=== PATIENT | male | born 1995 | race Caucasian/White ===

== ENCOUNTER → 2017-11-15 | Outpatient (CLI) | payer OTHER | LOC: M WUC 11:48 | DX: M79.672 Pain in left foot (principal) | CPT/HCPCS: 73630 ==

== ENCOUNTER 2018-02-13 17:51 | Emergency (ER) | payer OTHER ==
[2018-02-13] MEDS: ALBUTEROL SULFATE 2.5 MG/0.5 ML INH NEB SOLN NEB (18:23)
== END 2018-02-13 19:04 | disposition home or self-care (01) ==
LOC: M ED 17:51
DX: J45.901 Unspecified asthma with (acute) exacerbation (principal)
CPT/HCPCS: 99283

== ENCOUNTER 2018-03-17 20:23 | Emergency (ER) | payer OTHER ==
[2018-03-17] MEDS: AUGMENTIN 875 MG TAB PO (20:47)
[2018-03-17] MEDS: NORCO, ANEXSIA 5/325MG TABLET (HYDROcodone/ACETAMINOPHEN) PO (20:48)
== END 2018-03-17 21:00 | disposition home or self-care (01) ==
LOC: M ED 20:23
DX: H66.41 Suppurative otitis media, unspecified, right ear (principal); J45.909 Unspecified asthma, uncomplicated
CPT/HCPCS: 99282

== ENCOUNTER 2018-04-11 04:14 | Emergency (ER) | payer OTHER ==
[2018-04-11] MEDS: dexameTHASONE 20 MG/5 ML VIAL (J1100) IV (06:35)
[2018-04-11] MEDS: NS 1,000 ML IV (06:35)
[2018-04-11 06:54] LABS: BASO # 0.1 10^3/uL (0.0-0.2); BASO % 0.4 % (0.0-1.0); EOS # 0.5 10^3/uL (0.0-0.50); EOS % 4.5 % (0.0-3.0); HEMATOCRIT 47.6 % (42.0-52.0); HEMOGLOBIN 16.2 g/dl (13.5-17.5); IMMATURE GRANULOCYTE % 0.4 % (0-3.0); LYMPH # 0.9 10^3/uL (1.5-6.5); LYMPH % 7.4 % (24.0-44.0); MEAN CORPUSCULAR HEMOGLOBIN 29.6 pg (27.0-33.0); MEAN CORPUSCULAR VOLUME 86.9 fl (80.0-96.0); MONO # 0.9 10^3/uL (0.0-0.8); MONO % 7.2 % (0.0-5.0); NEUTROPHILS # 9.5 10^3/uL (1.8-7.7); NEUTROPHILS % 80.1 % (36.0-66.0); PLATELET COUNT, AUTOMATED 216 10^3/uL (150-450); RED BLOOD COUNT 5.48 10^6/uL (4.30-6.10); RED CELL DISTRIBUTION WIDTH 12.5 % (11.5-14.5); WHITE BLOOD COUNT 11.9 10^3/uL (4.0-10.0)
[2018-04-11] MEDS: KETOROLAC 30 MG/ML VIAL (J1885) IV (07:21)
[2018-04-11] MEDS ORDERED: ISOVUE-370 76% 100ML VIAL (Q9967) As Ordered (07:27)
[2018-04-11 07:56] LABS: ANION GAP 6 MEQ/L (8-16); BLOOD UREA NITROGEN 13 MG/DL (7-18); C REACTIVE PROTEIN QUANTITATIV 1.95 MG/DL (0.00-0.30); CALCIUM LEVEL 8.2 MG/DL (8.5-10.1); CARBON DIOXIDE LEVEL 23 MEQ/L (21-32); CHLORIDE LEVEL 109 MEQ/L (98-107); CREATININE FOR GFR 0.84 MG/DL (0.70-1.30); GLOMERULAR FILTRATION RATE > 60.0 (>60); GLUCOSE, FASTING 91 MG/DL (70-100); POTASSIUM SERUM 4.3 MEQ/L (3.5-5.1); SODIUM LEVEL 138 MEQ/L (136-145)
[2018-04-11] MEDS: AMPICILLIN SOD/SULBACTAM SOD 3 GM in D5W MINI-BAG PLUS 100 ML IV (09:51)
[2018-04-11] MEDS: HYDROcodone/APAP LIQUID 7.5-325MG 15ML UDC (LORTAB ELIXIR) PO (10:05)
== END 2018-04-11 10:46 | disposition home or self-care (01) ==
LOC: M ED 04:14
DX: K12.2 Cellulitis and abscess of mouth (principal); J02.9 Acute pharyngitis, unspecified; J45.909 Unspecified asthma, uncomplicated; J30.2 Other seasonal allergic rhinitis; Z79.899 Other long term (current) drug therapy
CPT/HCPCS: J1100

== ENCOUNTER 2018-04-23 03:27 | Emergency (ER) | payer SELFPAY, OTHER | END 2018-04-23 04:35 | disposition home or self-care (01) | LOC: M ED 03:27 | DX: H61.22 Impacted cerumen, left ear (principal); Z79.899 Other long term (current) drug therapy | CPT/HCPCS: 99282 ==

== ENCOUNTER 2018-05-10 18:16 | Emergency (ER) | payer SELFPAY ==
[2018-05-10] MEDS: CIPROFLOXACIN HC OTIC SUSPENSION AD (21:09)
[2018-05-10] MEDS: AMOXICILLIN 500 MG CAP PO (21:09)
== END 2018-05-10 21:15 | disposition home or self-care (01) ==
LOC: M ED 18:16
DX: H66.91 Otitis media, unspecified, right ear (principal); H60.91 Unspecified otitis externa, right ear; J45.909 Unspecified asthma, uncomplicated
CPT/HCPCS: 99283

== ENCOUNTER 2018-06-28 07:25 | Emergency (ER) | payer OTHER, SELFPAY ==
[~2018-06-28] VITALS: Ht 185.4 cm; Wt 140.9 kg
[~2018-06-28 07:25] MED LIST: ALLE24TA8 PO; AMOX875T PO; AUGM500T34 PO; AUGM875T28 PO; CELE1CAP4 PO; CIPR0.3S AD; COLA100C5 PO; HYDR-3715 PO; IBUP-1022 PO; IBUP200C25 PO; NEUR600T PO; OFLOSO AD; OXYC-517 PO; PROAAER10 INH; SUDA30TA8 PO
[2018-06-28 09:25] LABS: BASO % 0.6 % (0.0-1.0); EOS # 0.3 10^3/uL (0.0-0.50); EOS % 4.7 % (0.0-3.0); HEMATOCRIT 43.7 % (42.0-52.0); HEMOGLOBIN 15.1 g/dl (13.5-17.5); LYMPH % 43.5 % (24.0-44.0); MEAN CORPUSCULAR HEMOGLOBIN 29.4 pg (27.0-33.0); MEAN CORPUSCULAR HGB CONC 34.6 g/dl (32.0-36.5); MONO # 0.5 10^3/uL (0.0-0.8); MONO % 7.9 % (0.0-5.0); NEUTROPHILS # 2.9 10^3/uL (1.8-7.7); NEUTROPHILS % 42.6 % (36.0-66.0); PLATELET COUNT, AUTOMATED 202 10^3/uL (150-450); RED BLOOD COUNT 5.14 10^6/uL (4.30-6.10); WHITE BLOOD COUNT 6.9 10^3/uL (4.0-10.0)
[2018-06-28 09:47] LABS: APPEARANCE, URINE CLEAR (CLEAR); BACTERIA, URINE AUTO NEGATIVE (NEGATIVE); BILIRUBIN, URINE AUTO NEGATIVE (NEGATIVE); BLOOD, URINE BLOOD NEGATIVE (NEGATIVE); COLOR, URINE YELLOW (YELLOW); GLUCOSE, URINE (UA) AUTO NEGATIVE (NEGATIVE); KETONE, URINE AUTO NEGATIVE (NEGATIVE); LEUKOCYTE ESTERASE, URINE AUTO NEGATIVE (NEGATIVE); MUCUS, URINE SMALL (NEGATIVE); NITRITE, URINE AUTO NEGATIVE (NEGATIVE); PROTEIN, URINE AUTO NEGATIVE (NEGATIVE); RBC, URINE AUTO 4 /HPF (0-3); SPECIFIC GRAVITY URINE AUTO 1.021 (1.002-1.035); SQUAMOUS EPITHELIAL CELL UR AU 0 /HPF (0-6); UROBILINOGEN, URINE AUTO 0.2 mg/dL (0.0-2.0); WBC, URINE AUTO 0 /HPF (0-3)
[2018-06-28 09:59] LABS: BLOOD UREA NITROGEN 13 MG/DL (7-18); CALCIUM LEVEL 9.4 MG/DL (8.5-10.1); CARBON DIOXIDE LEVEL 29 MEQ/L (21-32); CHLORIDE LEVEL 104 MEQ/L (98-107); CREATININE FOR GFR 0.97 MG/DL (0.70-1.30); GLOMERULAR FILTRATION RATE > 60.0 (>60); GLUCOSE, FASTING 93 MG/DL (70-100); POTASSIUM SERUM 4.4 MEQ/L (3.5-5.1); SODIUM LEVEL 137 MEQ/L (136-145)
[2018-06-28] MEDS ORDERED: CEFD1CAP8 PO (10:28)
[2018-06-28] MEDS ORDERED: CHLO25TA PO (10:28)
[2018-06-28] MEDS ORDERED: FLON1SPR NARES (10:28)
[2018-06-28 10:35] VITALS: BP 170/101
== END 2018-06-28 10:46 | disposition home or self-care (01) ==
LOC: M ED 07:25
DX: H66.001 Acute suppurative otitis media without spontaneous rupture of ear drum, right ear (principal); I10 Essential (primary) hypertension; J30.2 Other seasonal allergic rhinitis; Z79.899 Other long term (current) drug therapy; J30.81 Allergic rhinitis due to animal (cat) (dog) hair and dander

== ENCOUNTER → 2018-07-05 | Outpatient (REF) | payer OTHER ==
[~2018-07-05] MED LIST changes: +ARNU1INH; +CEFD1CAP8 PO; +CHLO25TA PO; +CLEO300C2 PO; +FLON1SPR NARES; -HYDR-3715 PO; +MAGICMW SSP; +NORCOTAB PO; +OMEP-218; +PROAAER10; +SUDATAB15 PO
[2018-07-05 16:54] LABS: BLOOD UREA NITROGEN 20 MG/DL (7-18); CALCIUM LEVEL 9.4 MG/DL (8.5-10.1); CARBON DIOXIDE LEVEL 29 MEQ/L (21-32); CHLORIDE LEVEL 101 MEQ/L (98-107); CREATININE FOR GFR 1.07 MG/DL (0.70-1.30); GLOMERULAR FILTRATION RATE > 60.0 (>60); GLUCOSE, FASTING 96 MG/DL (70-100); POTASSIUM SERUM 3.4 MEQ/L (3.5-5.1); SODIUM LEVEL 138 MEQ/L (136-145)
== END ==
LOC: M SFHCCLAY 09:15
PROVIDERS: ATTEND Family Medicine
DX: I10 Essential (primary) hypertension (principal); Z09 Encounter for follow-up examination after completed treatment for conditions other than malignant neoplasm

== ENCOUNTER 2018-07-06 00:32 | Emergency (ER) | payer OTHER ==
[~2018-07-06] VITALS: Ht 185.4 cm; Wt 136.4 kg
[~2018-07-06 00:32] MED LIST changes: -ARNU1INH; -CLEO300C2 PO; -MAGICMW SSP; -OMEP-218; -PROAAER10; -SUDATAB15 PO
[2018-07-06] MEDS ORDERED: SUDATAB15 PO (01:44)
[2018-07-06] MEDS ORDERED: MAGICMW SSP (01:44)
[2018-07-06] MEDS ORDERED: PSEUDOEPHEDRINE 30 MG TAB PO ONE (01:45)
[2018-07-06] MEDS ORDERED: MAGIC MOUTHWASH SUSPENSION BTL SS ONE (01:45)
[2018-07-06 02:09] VITALS: BP 148/101
== END 2018-07-06 02:09 | disposition home or self-care (01) ==
LOC: M ED 00:32
DX: J02.9 Acute pharyngitis, unspecified (principal); H66.93 Otitis media, unspecified, bilateral

== ENCOUNTER 2018-07-09 01:20 | Emergency (ER) | payer OTHER ==
[~2018-07-09] VITALS: Ht 185.4 cm; Wt 136.4 kg
[2018-07-09 01:20] VITALS: BP 140/89
[~2018-07-09 01:20] MED LIST changes: +MAGICMW SSP; +SUDATAB15 PO
[2018-07-09] MEDS ORDERED: PROAAER10 (01:29)
[2018-07-09] MEDS ORDERED: ARNU1INH (01:29)
[2018-07-09] MEDS ORDERED: OMEP-218 (01:29)
[2018-07-09] MEDS ORDERED: CLEO300C2 PO (02:55)
[2018-07-09] MEDS ORDERED: KETOROLAC 30 MG/ML VIAL (J1885) As Ordered ONE (02:57)
[2018-07-09] MEDS ORDERED: CLINDAMYCIN 150 MG CAP PO ONE (03:00)
[2018-07-09] MEDS ORDERED: KETOROLAC 60 MG/2 ML VIAL (J1885) IM ONE (03:00)
== END 2018-07-09 03:05 | disposition home or self-care (01) ==
LOC: M ED 01:20
DX: K04.7 Periapical abscess without sinus (principal); R68.84 Jaw pain; K02.9 Dental caries, unspecified; H92.01 Otalgia, right ear; J30.81 Allergic rhinitis due to animal (cat) (dog) hair and dander; Z79.899 Other long term (current) drug therapy; Z79.2 Long term (current) use of antibiotics; Z79.51 Long term (current) use of inhaled steroids
CPT/HCPCS: 96372; 99283; J1885

== ENCOUNTER 2018-10-20 09:24 | Emergency (ER) | payer OTHER ==
[~2018-10-20] VITALS: Ht 185.4 cm; Wt 163.1 kg
[2018-10-20 09:24] VITALS: BP 152/85
[~2018-10-20 09:24] MED LIST changes: +ALLE24TA7 PO; -ALLE24TA8 PO; +ARNU1INH; +CLEO300C2 PO; +HYDR-3715 PO; -NORCOTAB PO; +OMEP-218; +PROAAER10
[2018-10-20] MEDS ORDERED: AUGM875T28 PO (10:10)
[2018-10-20] MEDS ORDERED: PRED20TA PO (10:10)
[2018-10-20] MEDS ORDERED: AUGMENTIN 875 MG TAB PO ONE (10:15)
== END 2018-10-20 10:17 | disposition home or self-care (01) ==
LOC: M ED 09:24
DX: K12.2 Cellulitis and abscess of mouth (principal); J01.90 Acute sinusitis, unspecified; Z86.69 Personal history of other diseases of the nervous system and sense organs; J45.909 Unspecified asthma, uncomplicated; K21.9 Gastro-esophageal reflux disease without esophagitis; Z79.899 Other long term (current) drug therapy

== ENCOUNTER → 2019-05-16 | Outpatient (REF) | payer OTHER ==
[~2019-05-16] MED LIST changes: +PRED20TA PO
== END ==
LOC: M SFHCCLAY 11:07
PROVIDERS: ATTEND Family Medicine
DX: K21.9 Gastro-esophageal reflux disease without esophagitis (principal)

== ENCOUNTER 2019-05-26 08:11 | Emergency (ER) | payer OTHER ==
[~2019-05-26] VITALS: Ht 185.4 cm; Wt 146.4 kg
[2019-05-26 09:03] LABS: BASO # 0.1 10^3/uL (0.0-0.2); BASO % 0.5 % (0.0-1.0); EOS # 0.3 10^3/uL (0.0-0.5); EOS % 2.8 % (0.0-3.0); HEMATOCRIT 49.2 % (42.0-52.0); HEMOGLOBIN 16.9 g/dl (13.5-17.5); LYMPH % 20.3 % (24.0-44.0); MEAN CORPUSCULAR HEMOGLOBIN 28.6 pg (27.0-33.0); MEAN CORPUSCULAR HGB CONC 34.3 g/dl (32.0-36.5); MEAN CORPUSCULAR VOLUME 83.2 fl (80.0-96.0); MONO # 0.7 10^3/uL (0.0-0.8); MONO % 6.7 % (0.0-5.0); NEUTROPHILS # 6.7 10^3/uL (1.5-8.5); NEUTROPHILS % 69.3 % (36.0-66.0); PLATELET COUNT, AUTOMATED 245 10^3/uL (150-450); RED BLOOD COUNT 5.91 10^6/uL (4.30-6.10); WHITE BLOOD COUNT 9.7 10^3/uL (4.0-10.0)
[2019-05-26] MEDS ORDERED: CHLO125TA PO (09:21)
[2019-05-26] MEDS ORDERED: PANT40TA3 PO (09:21)
[2019-05-26 09:27] LABS: ALBUMIN 4.2 GM/DL (3.2-5.2); ALT/SGPT 74 U/L (12-78); BILIRUBIN,DIRECT 0.3 MG/DL (0.0-0.2); BILIRUBIN,TOTAL 1.4 MG/DL (0.2-1.0); BLOOD UREA NITROGEN 14 MG/DL (7-18); CALCIUM LEVEL 9.5 MG/DL (8.5-10.1); CARBON DIOXIDE LEVEL 27 MEQ/L (21-32); CHLORIDE LEVEL 103 MEQ/L (98-107); CREATININE FOR GFR 1.04 MG/DL (0.70-1.30); GLOMERULAR FILTRATION RATE > 60.0 (>60); GLUCOSE, FASTING 102 MG/DL (70-100); LIPASE 82 U/L (73-393); POTASSIUM SERUM 3.3 MEQ/L (3.5-5.1); SODIUM LEVEL 139 MEQ/L (136-145); TOTAL PROTEIN 7.7 GM/DL (6.4-8.2)
--- NOTE | 2019-05-26 11:48 | REP ---
RIGHT UPPER QUADRANT SONOGRAPHY: HISTORY: Elevated liver enzymes. Comparison CT study May 18, 2015. SONOGRAPHIC FINDINGS: Scanning through the right upper quadrant of the abdomen demonstrates normal sized thin-walled gallbladder without evidence of stone or polyp. Common bile duct is normal measuring 0.6 cm in greatest diameter. Limited penetration of the liver and increased echogenicity suggest fatty infiltration of the liver. The liver is felt to be mildly prominent in size with a midclavicular line craniocaudal dimension of 19.4 cm. There are areas of fat sparing in the liver parenchyma adjacent to the gallbladder. Pancreatic visualization is limited by bowel gas. No pancreatic abnormality is seen. No free fluid is noted. No right renal abnormality is observed. The right kidney measures 11.9 x 6.5 x 5.4 cm. IMPRESSION: Fatty infiltration of the liver. Mildly enlarged liver. Otherwise negative. Electronically Signed by Alvarez Gibbons MD 05/26/2019 12:17 P
[2019-05-26] MEDS ORDERED: ZOFR8TAB24 PO (11:49)
[2019-05-26 11:51] VITALS: BP 144/84
== END 2019-05-26 11:58 | disposition home or self-care (01) ==
LOC: M ED 08:11
DX: R11.2 Nausea with vomiting, unspecified (principal); R10.9 Unspecified abdominal pain

== ENCOUNTER → 2019-06-05 | Outpatient (REF) | payer OTHER ==
[~2019-06-05] MED LIST changes: +CHLO125TA PO; +PANT40TA3 PO; +ZOFR8TAB24 PO
[2019-06-05 17:08] LABS: BLOOD UREA NITROGEN 15 MG/DL (7-18); CALCIUM LEVEL 9.7 MG/DL (8.5-10.1); CARBON DIOXIDE LEVEL 30 MEQ/L (21-32); CHLORIDE LEVEL 103 MEQ/L (98-107); GLOMERULAR FILTRATION RATE > 60.0 (>60); GLUCOSE, FASTING 81 MG/DL (70-100); POTASSIUM SERUM 3.9 MEQ/L (3.5-5.1); SODIUM LEVEL 139 MEQ/L (136-145)
== END ==
LOC: M SFHCCLAY 11:49
PROVIDERS: ATTEND Family Medicine
DX: K21.9 Gastro-esophageal reflux disease without esophagitis (principal)

== ENCOUNTER 2019-10-14 21:59 | Emergency (ER) | payer MEDICAID, OTHER ==
[~2019-10-14] VITALS: Ht 182.9 cm; Wt 145.4 kg
[2019-10-14 21:59] VITALS: BP 146/93
[2019-10-14] MEDS ORDERED: AMLO5TAB6 PO (22:04)
[2019-10-14] MEDS ORDERED: PERCOCET 5MG/325MG TAB PO ONE (22:15)
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
== END 2019-10-14 23:49 | disposition home or self-care (01) ==
LOC: M ED 21:59
DX: S93.401A Sprain of unspecified ligament of right ankle, initial encounter (principal); W19.XXXA Unspecified fall, initial encounter; Y93.67 Activity, basketball; Y92.89 Other specified places as the place of occurrence of the external cause; K21.9 Gastro-esophageal reflux disease without esophagitis

== ENCOUNTER → 2020-09-03 | Outpatient (REF) | payer OTHER ==
[~2020-09-03] MED LIST changes: +AMLO1TAB24 PO; -CIPR0.3S AD; +CIPR0.3S6 AD; +PANT40TA29 PO; -PANT40TA3 PO
[2020-09-03 22:35] LABS: BLOOD UREA NITROGEN 14 MG/DL (7-18); CALCIUM LEVEL 9.2 MG/DL (8.5-10.1); CARBON DIOXIDE LEVEL 31 MEQ/L (21-32); CHLORIDE LEVEL 107 MEQ/L (98-107); CREATININE FOR GFR 0.86 MG/DL (0.70-1.30); GLOMERULAR FILTRATION RATE > 60.0 (>60); GLUCOSE, FASTING 121 MG/DL (70-100); POTASSIUM SERUM 4.4 MEQ/L (3.5-5.1); SODIUM LEVEL 141 MEQ/L (136-145)
== END ==
LOC: M SFHCCLAY 09:34
PROVIDERS: ATTEND Family Medicine
DX: I11.9 Hypertensive heart disease without heart failure (principal)

== ENCOUNTER → 2020-10-07 | Outpatient (REF) | payer OTHER ==
[2020-10-07 16:59] LABS: BLOOD UREA NITROGEN 13 MG/DL (7-18); CALCIUM LEVEL 9.4 MG/DL (8.5-10.1); CARBON DIOXIDE LEVEL 29 MEQ/L (21-32); CHLORIDE LEVEL 106 MEQ/L (98-107); CREATININE FOR GFR 0.87 MG/DL (0.70-1.30); GLOMERULAR FILTRATION RATE > 60.0 (>60); GLUCOSE, FASTING 93 MG/DL (70-100); POTASSIUM SERUM 4.5 MEQ/L (3.5-5.1); SODIUM LEVEL 139 MEQ/L (136-145)
== END ==
LOC: M SFHCCLAY 10:00
PROVIDERS: ATTEND Family Medicine
DX: I11.9 Hypertensive heart disease without heart failure (principal)

== ENCOUNTER 2021-03-25 06:57 | Emergency (ER) | payer OTHER ==
[~2021-03-25] VITALS: Ht 185.4 cm; Wt 149.2 kg
[2021-03-25] MEDS ORDERED: ALBU8.5H INH (07:03)
[2021-03-25] MEDS ORDERED: AMOX875T PO (07:03)
[2021-03-25] MEDS ORDERED: LISI10TA22 PO (07:03)
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
--- OUTSIDE RECORDS SUMMARY | 2021-03-25 07:04 | CCD ---
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 mm[Hg] 76 mm[Hg] eCW1 ([facility]ly [facility], [facility]) Body weight 344 [lb_av] 344 [lb_av] eCW1 ([facility]) Body height [in_i] eCW1 ([facility]) Body mass index (BMI) [Ratio] 44.46 kg/m2 44.46 kg/m2 eCW1 ([facility], [facility]) Heart rate 89 /min 89 /min eCW1 ([facility]) Respiratory rate 18 /min 18 /min eCW1 ([facility]) Body temperature 99.5 [degF] 99.5 [degF] eCW1 ( [facility]ly [facility], [facility]) Systolic blood pressure 153 mm[Hg] 153 mm[Hg] e CW1 ([facility]ly [facility], [facility]) Diastolic blood pressure 94 mm[Hg] 94 mm[Hg] eCW1 ([facility]ly [facility], [facility]) ID Date Data Source [id number] 12/27/2020 12:27:00 PM EDT [facility] Name Value Range Interpretation Code Description Data Source(s) WEIGHT 113.39 kilos 113.39 kilos [facility] HEIGHT 187.96 centimeters 187.96 centimeter [facility] WEIGHT 113.39 kilos 113.39 kilos [facility] HEIGHT 187.96 centimeters 187.96 centimeter [facility] Patient Treatment Plan of Care Planned Activity Planned Date Details Description Data Source (s) Lisinopril 10 MG Oral Tablet 09/03/2020 12:00:00 AM EDT eCW1 ([facility]ly [facility], [facility]) Lisinopril 10 MG Oral Tablet 09/03/2020 12:00:00 AM EDT eCW1 ([facility]ly [facility], [facility]) Lisinopril 10 MG Oral Tablet 09/03/2020 12:00:00 AM EDT eCW1 ([facility]ly [facility], [facility])
[2021-03-25 08:10] VITALS: BP 130/93
[2021-03-25 09:03] LABS: BASO % 0.3 % (0.0-1.0); EOS # 0.2 10^3/uL (0.0-0.5); HEMOGLOBIN 14.9 g/dl (13.5-17.5); LYMPH # 1.3 10^3/uL (1.5-5.0); LYMPH % 12.3 % (24.0-44.0); MEAN CORPUSCULAR HEMOGLOBIN 29.2 pg (27.0-33.0); MEAN CORPUSCULAR HGB CONC 33.1 g/dl (32.0-36.5); MEAN CORPUSCULAR VOLUME 88.2 fl (80.0-96.0); MONO # 0.8 10^3/uL (0.0-0.8); MONO % 7.7 % (2.0-8.0); NEUTROPHILS # 8.3 10^3/uL (1.5-8.5); NEUTROPHILS % 77.2 % (36.0-66.0); PLATELET COUNT, AUTOMATED 225 10^3/uL (150-450); WHITE BLOOD COUNT 10.7 10^3/uL (4.0-10.0)
[2021-03-25] MEDS ORDERED: KETOROLAC 60MG 2ML VIAL IM ONE (09:10)
--- NOTE | 2021-03-25 09:10 | REPVR ---
PROCEDURE INFORMATION: Exam: CT Maxillofacial Without Contrast, Sinus Exam date and time: 03/25/2021 8:27 AM Age: 25 years old Clinical indication: Pain; Other: Left ear/mastoid; Additional info: Sev L ear pain, mastoid tenderness, known om TECHNIQUE: Imaging protocol: CT Maxillofacial without contrast. Focus on the sinuses. Radiation optimization: All CT scans at this facility use at least one of these dose optimization techniques: automated exposure control; mA and/or kV adjustment per patient size (includes targeted exams where dose is matched to clinical indication); or iterative reconstruction. COMPARISON: CT Neck with contrast 04/11/2018 8:23 AM FINDINGS: Paranasal sinuses: There is mucosal thickening in maxillary and sphenoid sinuses which is polypoid/ associated with retention cysts or polyps. Also small retention cyst or polyp right frontal sinus. Mild mucosal thickening in ethmoid air cells. Nasofrontal recesses and sphenoid ethmoidal recesses, are clear. There is small amount of opacification in right middle meatus otherwise ostiomeatal complexes are centrally clear. Nasal cavity/Septum: Nasal septum is deviated to right with small septal spur. Orbital cavity: Orbits are normal. Globes are unremarkable. Bones/joints: Unremarkable. Soft tissues: See "Auditory system" finding. Auditory system: There is mural based density in left external auditory canal. There is thickening of left tympanic membrane. There is small amount of opacification in left middle ear cavity which partially surrounds ossicles in mesotympanum extending to the oval and round window niches, and involving the posterior tympanic cavity opacifying sinus tympani and facial recess. No evidence of definite ossicular erosion. Right external auditory canal and middle ear cavity are clear. Bilateral inner ears appear unremarkable. Mastoid air cells: Bilateral mastoid air cells are well developed. There is minimal opacification in few left mastoid air cells inferiorly. Otherwise bilateral mastoid air cells are clear. No bony erosion or coalescent mastoiditis. IMPRESSION: 1. Incomplete opacification of left external auditory canal suggesting otitis externa. Partial opacification in left middle ear cavity without ossicular erosion consistent with otitis media versus chronic granulation tissue. 2. Mucosal sinus disease as described. Electronically signed by: Rani Lipscomb On 03/25/2021 09:09:54 AM
[2021-03-25] MEDS ORDERED: CIPR0.3S6 AS (09:19)
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
[2021-03-25] MEDS ORDERED: CIPROFLOXACIN HC OTIC SUSPENSION AS ONE (10:00)
== END 2021-03-25 09:53 | disposition home or self-care (01) ==
LOC: M ED 06:57
DX: H60.312 Diffuse otitis externa, left ear (principal); H66.92 Otitis media, unspecified, left ear; I10 Essential (primary) hypertension; Z79.2 Long term (current) use of antibiotics; Z79.899 Other long term (current) drug therapy; Z98.890 Other specified postprocedural states
CPT/HCPCS: 70486; 80047; 85025; 96372; 99283; J1885

== ENCOUNTER 2021-04-25 09:28 | Emergency (ER) | payer OTHER ==
[~2021-04-25] VITALS: Ht 185.4 cm; Wt 149.2 kg
[~2021-04-25 09:28] MED LIST changes: +ALBU8.5H INH; +CIPR0.3S6 AS; +LISI10TA22 PO
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
[2021-04-25] MEDS ORDERED: KETOROLAC 30 MG/ML 1ML VIAL IM ONE (09:55)
--- NOTE | 2021-04-25 10:25 | REP ---
INDICATION: pain left testicle. COMPARISON: None. TECHNIQUE: Ultrasound examination of the testes, including color Doppler, was performed. FINDINGS: There is normal homogeneous testicular echogenicity bilaterally. The right testis measures 4.9 x 3.8 x 2.4 cm and the left testis measures 4.8 x 3.0 x 2.5 cm. The head of the right epididymis measures 7 mm in thickness and the head of the left epididymis measures 8 mm in thickness. The RI, PSV and EDV are normal bilaterally. IMPRESSION: Normal scrotal ultrasound. <Electronically signed by Jose Pro > 04/25/21 1020
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
--- NOTE | 2021-04-25 11:29 | REP ---
INDICATION: CVA/ HX UPJ obstruction. COMPARISON: CT abdomen pelvis with contrast 05/18/2015. TECHNIQUE: Imaging protocol: Computed tomography of the abdomen and pelvis without IV contrast. Contiguous 3 mm thick axial projection images were obtained through the abdomen and pelvis. 2D sagittal and coronal reconstructions were performed. Radiation optimization: All CT scans at this facility use at least one of these dose optimization techniques: automated exposure control; mA and/or kV adjustment per patient size (includes targeted exams where dose is matched to clinical indication); or iterative reconstruction. FINDINGS: Heart and lung bases: The lung bases are clear. There are no pleural effusions. The heart size is normal. There is no pericardial effusion. Liver: Fatty infiltration. Gallbladder: Normal. Spleen: The spleen measures 14.0 cm in pole to pole length. Pancreas: Normal unenhanced appearance. Adrenal glands: Normal unenhanced appearance. Kidneys/bladder: There is no nephrolithiasis or ureterolithiasis. There is mild pelvocaliectasis on the left without evidence of obstructing stone. The right kidney and urinary bladder have a normal unenhanced appearance. Pelvic structures: The prostate gland is normal in size. The seminal vesicles have a normal unenhanced appearance. There is no free fluid the pelvis. There is no pelvic or inguinal lymphadenopathy. GI tract: The appendix is not demonstrated. The gastrointestinal tract is otherwise unremarkable. Abdominal wall and mesentery: There are no abdominal wall defects. There is "shotty" retroperitoneal and left renal hilar lymphadenopathy. There is no mesenteric lymphadenopathy. Abdominal aorta and vascular structures: The abdominal aorta has a normal unenhanced appearance. Bony structures: There is degenerative grade 1 retrolisthesis of L5 on S1. The SI joints and hips are unremarkable. IMPRESSION: 1. There is mild pelvicaliectasis on the left of uncertain etiology, may be a partially obstructing non radiopaque stone, blood clot or mass. This appearance was not present on the prior exam. 2. There is reactive retroperitoneal and right renal hilar lymphadenopathy. 3. There is mild splenomegaly. 4. There is fatty liver infiltration. <Electronically signed by Jose Pro > 04/25/21 [id number]
[2021-04-25] MEDS ORDERED: ISOVUE-370 76% 100ML VIAL As Ordered ONE (12:18)
[2021-04-25 12:19] LABS: GC DNA AMPLIFICATION NEGATIVE (NEGATIVE)
[2021-04-25 12:20] LABS: BASO # 0.1 10^3/uL (0.0-0.2); BASO % 0.7 % (0.0-1.0); EOS # 0.4 10^3/uL (0.0-0.5); EOS % 3.5 % (0.0-3.0); HEMATOCRIT 46.3 % (42.0-52.0); HEMOGLOBIN 15.3 g/dl (13.5-17.5); LYMPH % 20.6 % (24.0-44.0); MEAN CORPUSCULAR HEMOGLOBIN 29.3 pg (27.0-33.0); MEAN CORPUSCULAR VOLUME 88.5 fl (80.0-96.0); MONO # 0.5 10^3/uL (0.0-0.8); MONO % 5.3 % (2.0-8.0); NEUTROPHILS # 6.8 10^3/uL (1.5-8.5); PLATELET COUNT, AUTOMATED 226 10^3/uL (150-450); RED BLOOD COUNT 5.23 10^6/uL (4.30-6.10); WHITE BLOOD COUNT 9.9 10^3/uL (4.0-10.0)
[2021-04-25 12:46] LABS: ALBUMIN 4.2 GM/DL (3.2-5.2); ALT/SGPT 55 U/L (12-78); BILIRUBIN,DIRECT 0.2 MG/DL (0.0-0.2); BILIRUBIN,TOTAL 0.7 MG/DL (0.2-1.0); LIPASE 82 U/L (73-393); MONO SCRN NEGATIVE (NEGATIVE); TOTAL PROTEIN 8.2 GM/DL (6.4-8.2)
--- NOTE | 2021-04-25 13:17 | REP ---
INDICATION: ct noncontrat findings. COMPARISON: CT abdomen and pelvis without IV contrast 04/25/2021 10:59 a.m. TECHNIQUE: Imaging protocol: Computed tomography of the abdomen and pelvis without and with IV contrast. Contiguous 3 mm thick axial projection images were obtained through the abdomen and pelvis. 2D sagittal and coronal reconstructions were performed. Radiation optimization: All CT scans at this facility use at least one of these dose optimization techniques: automated exposure control; mA and/or kV adjustment per patient size (includes targeted exams where dose is matched to clinical indication); or iterative reconstruction. Contrast material: ISOVUE 370; Contrast volume: 100 ml; Contrast route: INTRAVENOUS (IV). FINDINGS: Heart and lung bases: The lung bases are clear. There are no pleural effusions. The heart size is normal. There is no pericardial effusion. Liver: Fatty infiltration. Gallbladder: Normal. Spleen: There is mild splenomegaly with the spleen measuring 14.0 cm in pole to pole length. Pancreas: Normal. Adrenal glands: Normal. Kidneys/bladder: There is moderate pelvocaliectasis on the left. There is focal thickening of the wall of the ureter at the UPJ. The left ureter appears patent, however, because there is contrast seen in the non dilated portion of the ureter beyond the UPJ. The right kidney and urinary bladder are unremarkable. Pelvic structures: The prostate gland is normal in size. The seminal vesicles have a normal appearance. There is no free fluid the pelvis. There is no pelvic or inguinal lymphadenopathy. GI tract: The appendix is not demonstrated. The gastrointestinal tract is otherwise unremarkable. Abdominal wall and mesentery: There are no abdominal wall defects. There is shotty retroperitoneal and left renal hilar lymphadenopathy. There is now noted shotty mesenteric lymphadenopathy, more distinguishable following IV contrast administration. Abdominal aorta and vascular structures: The abdominal aorta, inferior vena cava, and portal venous system are normal. Bony structures: There is degenerative grade 1 retrolisthesis of L5 on S1. The SI joints and hips are normal. IMPRESSION: 1. 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 2. Shotty retroperitoneal, left renal hilar and mesenteric lymphadenopathy, most likely of viral or inflammatory origin. 3. Other findings as noted, not significantly changed. <Electronically signed by Jose Pro > 04/25/21 [id number]
[2021-04-25 15:08] VITALS: BP 145/88
== END 2021-04-25 15:10 | disposition home or self-care (01) ==
LOC: M ED 09:28
DX: Q62.11 Congenital occlusion of ureteropelvic junction (principal); I10 Essential (primary) hypertension; F12.10 Cannabis abuse, uncomplicated; K76.0 Fatty (change of) liver, not elsewhere classified; R59.0 Localized enlarged lymph nodes; Z79.899 Other long term (current) drug therapy
CPT/HCPCS: 36415; 74176; 74177; 76870; 80047; 80076; 81001; 83690; 85025; 86308; 87661; 93976; 96372; 99284; J1885; Q9967

== ENCOUNTER → 2021-09-01 | Outpatient (REF) | payer OTHER ==
[~2021-09-01] MED LIST changes: -CEFD1CAP8 PO; +CEFD300C41 PO; +OMEP-173; -OMEP-218
[2021-09-01 16:20] LABS: BLOOD UREA NITROGEN 14 MG/DL (7-18); CALCIUM LEVEL 10.2 MG/DL (8.5-10.1); CARBON DIOXIDE LEVEL 28 MEQ/L (21-32); CHLORIDE LEVEL 105 MEQ/L (98-107); CREATININE FOR GFR 0.88 MG/DL (0.70-1.30); GLOMERULAR FILTRATION RATE > 60.0 (>60); GLUCOSE, FASTING 88 MG/DL (70-100); SODIUM LEVEL 138 MEQ/L (136-145)
== END ==
LOC: M SFHCCLAY 11:26
PROVIDERS: ATTEND Family Medicine
DX: I11.9 Hypertensive heart disease without heart failure (principal)

== ENCOUNTER → 2022-07-05 | Outpatient (REF) | payer OTHER | LOC: M SFHCCLAY 16:50 | PROVIDERS: ATTEND Family Medicine | DX: B34.9 Viral infection, unspecified (principal) ==

== ENCOUNTER 2023-02-26 13:06 | Emergency (ER) | payer OTHER ==
[~2023-02-26] VITALS: Ht 185.4 cm; Wt 141.3 kg
[~2023-02-26 13:06] MED LIST changes: +CIPR0.3S37 AD; +CIPR0.3S37 AS; -CIPR0.3S6 AD; -CIPR0.3S6 AS
[2023-02-26] MEDS ORDERED: KETOROLAC 60MG 2ML VIAL IM ONE (16:20)
[2023-02-26] MEDS ORDERED: methocarbamoL 500 MG TAB PO ONE (16:20)
[2023-02-26] MEDS ORDERED: IBUP-1022 PO (18:35)
[2023-02-26] MEDS ORDERED: METH-1164 PO (18:35)
[2023-02-26 18:47] VITALS: BP 117/82; TEMP 97.1; O2SAT 99
== END 2023-02-26 19:00 | disposition home or self-care (01) ==
LOC: M ED 13:06
DX: M54.50 Low back pain, unspecified (principal); I10 Essential (primary) hypertension; J45.909 Unspecified asthma, uncomplicated; K21.9 Gastro-esophageal reflux disease without esophagitis; Z79.899 Other long term (current) drug therapy
CPT/HCPCS: 72110; 81001; 96372; 99283; J1885